=== PATIENT | female | born 1995 | race Caucasian/White ===

== ENCOUNTER 2022-12-06 19:26 | Emergency (ER) | payer MEDICAID ==
[~2022-12-06] VITALS: Ht 165.1 cm; Wt 89.6 kg
[2022-12-06 20:10] LABS: BASOPHILS % 0.3 % (0.0-2.0); EOSINOPHILS % 0.5 % (0.0-5.0); HEMATOCRIT. 28.1 % (42.0-52.0); HEMOGLOBIN. 9.2 g/dL (14.0-18.0); LYMPHOCYTES % 14.3 % (20.0-50.0); MEAN CORPUSCULAR HEMOGLOBIN 28.2 pg (28.0-32.0); MEAN CORPUSCULAR VOLUME 85.9 fL (80.0-94.0); MEAN PLATELET VOLUME 7.2 fl (7.4-10.4); MONOCYTES % 9.4 % (2.0-8.0); NEUTROPHILS % 75.5 % (40.0-76.0); PLATELET 307 x1000/uL (130-400); RED BLOOD CELL COUNT 3.27 mill/uL (4.7-6.1); RED CELL DISTRIBUTION WIDTH 15.9 % (11.6-14.6)
[2022-12-06 20:42] LABS: PROTHROMBIN TIME 10.5 sec (9.6-11.0)
[2022-12-06 20:53] LABS: CHLORIDE 104 mEq/L (98-107)
[2022-12-06 23:23] LABS: CLARITY URINE CLEAR (CLEAR); COLOR URINE YELLOW (YELLOW); KETONES URINE TRACE (NEGATIVE); LEUKOCYTE ESTERASE URINE 3+ (NEGATIVE); NITRITE URINE NEGATIVE (NEGATIVE); OCCULT BLOOD URINE 1+ (NEGATIVE); PROTEIN URINE NEGATIVE (NEGATIVE); SPECIFIC GRAVITY URINE 1.011 (1.005-1.030); UROBILINOGEN URINE 0.2 E.U./dL (0.2-1.0)
[2022-12-07] MEDS ORDERED: KETOROLAC 15MG/ML VIAL IV ONE ×2 (00:30→04:00)
[2022-12-07] MEDS ORDERED: ACET-2708 MT (05:19)
[2022-12-07] MEDS ORDERED: CEPH500T MT (05:19)
[2022-12-07 05:49] VITALS: BP 107/53
== END 2022-12-07 05:52 | disposition home or self-care (01) ==
LOC: ER 19:26 → EDSEX 19:26 → ER 12-07 05:52
DX: N39.0 Urinary tract infection, site not specified (principal); Z98.890 Other specified postprocedural states
CPT/HCPCS: 36415; 74176; 76830; 76856; 80053; 81003; 83605; 84702; 85025; 85610; 87040; 87077; 87086; 87186; 96374; 96376; 99285; J1885; Z7610